=== PATIENT | male | born 1955 | race Caucasian/White ===

== ENCOUNTER 2017-02-07 13:25 | Emergency (ER) ==
--- NOTE | 2017-02-07 15:51 | PROVIDER DOCUMENTATION ---
HPI-EENT General - General Chief Complaint: Toothache Stated Complaint: TOOTHACHE Time Seen by Provider: 02/07/17 14:06 Source: patient Allergies/Adverse Reactions: Patient Allergies Allergy/AdvReac Type Severity Reaction Status Date / Time lorazepam [From Ativan] AdvReac Unknown Verified 03/20/15 06:55 Home Medications: Home Medication List Medication Instructions Recorded Confirmed Last Taken Type Permethrin 5% Cream [Elimite 5% 60 gm TOP ONCE #1 tube 10/25/15 Unknown Rx Cream] Amoxicillin 875 mg PO BID #20 tablet 02/07/17 Unknown Rx - History of Present Illness-EENT General Nature of Presenting Problem: 61 yo male presents to the emergency room with a chief complaint of a tooth ache X 2 days. Reports pain unrelieved by motrin or tylenol. Gives hx of dental pain. Denies fever or chills. EENT Location: reports: dental Quality of Pain: reports: aching Severity: reports: moderate Onset/Duration: reports: 2 days ago Timing: reports: still present Prearrival Treatment: Initiated over the counter meds Associated Symptoms: denies: facial pain/swelling, fever - Throat/Dental Throat/Dental Problem Symptoms: reports: toothache. denies: swelling of jaw/ face Review of Systems - Adult - REVIEW OF SYSTEMS - ADULT Constitutional: denies: chills, fever Eyes: reports: no symptoms reported Ears, Nose, Mouth & Throat: reports: loose teeth, mouth/dental pain Cardiovascular: reports: no symptoms reported Respiratory: reports: no symptoms reported Gastrointestinal: reports: no symptoms reported Genitourinary: reports: no symptoms reported Musculoskeletal: reports: no symptoms reported Integumentary: reports: no symptoms reported Neurological: reports: no symptoms reported Psychiatric: reports: no symptoms reported Endocrine: reports: no symptoms reported Hematologic/Lymphatic: reports: no symptoms reported Allergic/Immunologic: reports: no symptoms reported All Other Systems: Reviewed and Negative Past History - Adult - PAST MEDICAL HISTORY-ADULT Review of Records: reports: Nursing Assessment Review, Medications Reviewed Major Childhood Illnesses: reports: denies history Cardiovascular: reports: denies history Respiratory: reports: denies history Gastrointestinal: reports: denies history Genitourinary: reports: denies history Musculoskeletal: reports: chronic pain Neurological: reports: denies history Psychiatric: reports: denies history Endocrine/Immune: reports: denies history Other Conditions: reports: denies history - PRIOR SURGERIES/PROCEDURES Surgical/Procedure History: reports: orthopedic (extremity) - IMMUNIZATION STATUS Childhood Immunizations: See Nurse Assessment Flu Vaccine: See Nurse Assessment - FAMILY HISTORY Family History: reviewed, not pertinent - SOCIAL HISTORY Smoking: cigarettes, greater than 1 pack/day Provider spent 3-5 mins advising pt. on dangers of tobacco.: Discussed manners to quit use, and f/u contacts for add'l counseling. Physical Exam- EENT - Physical Exam EENT Initial Vital Signs Reviewed: Yes General Appearance: appears well, alert, no apparent distress Eye Exam: bilateral eye: PERRL, EOMI Ear Exam: bilateral ear: canal normal, TM normal Throat Exam: dental tenderness, other (severe dental decay noted to mouth). negative: mandibular swelling, maxillary swelling Neck: full range of motion, supple Respiratory: lungs clear, normal breath sounds Cardiovascular: normal peripheral pulses, regular rate, rhythm Extremity: normal range of motion, normal inspection, normal capillary refill Integumentary: normal color, warm/dry Progress - PLAN OF CARE/RESULTS Progress/Plan/Lab Results: Discussed care, diagnosis and need for follow-up, patient verbalized understanding Last Vital Signs Temp 98.6 F 02/07/17 13:29 Pulse 103 H 02/07/17 13:29 Resp 20 02/07/17 13:29 BP 164/98 02/07/17 13:29 Pulse Ox 97 02/07/17 13:29 Allergies lorazepam [From Ativan] Adverse Reaction (Verified 03/20/15 06:55) Unknown Vital Signs - 24 hr 02/07/17 13:29 Temperature 98.6 F Pulse Rate 103 H Respiratory 20 Rate Blood Pressure 164/98 O2 Sat by Pulse 97 Oximetry Departure - Departure Time of Disposition Order: 15:48 DIAGNOSIS: Toothache, Dental decay Disposition: HOME 01 Certified Medical Emergency: Emergent Condition: Stable Additional Instructions: ED Follow Up Instructions: You have been treated by a care provider in the Emergency Department. These instructions are being provided to you so you can have an understanding of how to care for yourself upon discharge. Upon discharge from the Emergency Department, you are responsible for making arrangements for follow-up care by a physician of your choice. Take all prescribed medications as directed. Return to the Emergency Department immediately for any new or worsening symptoms. You may call the Physician Referral phone number at [phone] to obtain a list of Physicians who are taking new patients. Prescriptions: Amoxicillin 875 mg PO BID #20 tablet Referrals: None,PCP [Primary Care Provider] - Therese Beck MD [STAFF PHYSICIAN] - Instructions: Dental Pain, Amoxicillin capsules or tablets Attestation - Physician/ SHANA Attestation Patient care was provided by Advanced Practice Provider:: Yes Advanced Practice Provider:: Ene Ahuja Advanced Practice Provider documentation review:: The Mid-level provider documentation, treatment plan and medical decision making was reviewed by the physician who agrees with all treatment and medical decision making by the MLP.
[2017-02-07 16:39] VITALS: BP 153/82
== END 2017-02-07 16:37 | disposition home or self-care (01) ==
LOC: P.ED 13:25
DX: K02.9 Dental caries, unspecified (principal); K08.89 Other specified disorders of teeth and supporting structures; F17.210 Nicotine dependence, cigarettes, uncomplicated; Z71.6 Tobacco abuse counseling
CPT/HCPCS: 99282